=== PATIENT | female | born 1950 | race Caucasian/White ===

== ENCOUNTER 2017-11-14 23:02 | Emergency (ER) | payer OTHER, MEDICARE ==
[~2017-11-14] VITALS: Ht 165.1 cm; Wt 81.4 kg
[~2017-11-14 23:02] MED LIST: AMPH20CA7 PO; ATOR20TA PO; BACL20TA PO; DOCU-180 PO; FURO20TA3 PO; LEVO75TA5 PO; OXYC15TA60 PO; POTA10TA6 PO; POTA99TA24 PO; VENL150C PO
[2017-11-14 23:30] LABS: BASOPHILS # (AUTO) 0.02 x10^3/uL (0-0.1); BASOPHILS % (AUTO) 0 % (0-1); EOSINOPHILS # (AUTO) 0.05 x10^3/uL (0-0.4); EOSINOPHILS % (AUTO) 1 % (1-7); LYMPHOCYTES # (AUTO) 1.95 x10^3/uL (1-3.4); LYMPHOCYTES % (AUTO) 24 % (22-44); MD NO; MEAN CORPUSCULAR HEMOGLOBIN 28.4 pg (27.0-34.8); MEAN CORPUSCULAR HGB CONC 33.2 g/dL (32.4-35.8); MEAN CORPUSCULAR VOLUME 85.4 fL (80-100); MEAN PLATELET VOLUME 7.6 fL (7.4-10.4); MONOCYTES # (AUTO) 0.41 x10^3/uL (0.2-0.8); MONOCYTES % (AUTO) 5 % (2-9); NEUTROPHILS # (AUTO) 5.76 x10^3/uL (1.8-6.8); NEUTROPHILS % (AUTO) 70 % (42-75); PLATELET COUNT 358 x10^3/uL (130-400); RED BLOOD COUNT 4.89 x10^6/uL (3.82-5.3); RED CELL DISTRIBUTION WIDTH 15.1 % (9.6-15.2)
[2017-11-14] MEDS ORDERED: ZIPRASIDONE 20 MG INJ IM ONE (23:30)
[2017-11-14] MEDS ORDERED: VENL150C PO (23:41)
[2017-11-14] MEDS ORDERED: DOCU-131 PO (23:41)
[2017-11-14 23:42] LABS: ANION GAP 7 mmol/L (5-15); CALCIUM 8.9 mg/dL (8.5-10.1); CHLORIDE 108 mmol/L (98-107); CREATININE 0.96 mg/dL (0.55-1.02); SALICYLATE LEVEL 4.4 mg/dL (2.8-20.0)
[2017-11-14 23:45] LABS: ACETAMINOPHEN < 2 mcg/mL (10-30)
[2017-11-15] MEDS ORDERED: ZIPRASIDONE 20 MG INJ IM ONE
[2017-11-15 00:25] LABS: MICROSCOPIC NOT IND
[2017-11-15 00:26] LABS: CULTURE INDICATED? NO
[2017-11-15 00:39] LABS: AMPHETAMINE SCREEN, URINE Positive (Negative); BARBITURATE SCREEN, URINE Negative (Negative); BENZODIAZEPINE SCREEN, URINE Negative (Negative); COCAINE SCREEN, URINE Negative (Negative); METHADONE SCREEN, URINE Negative (Negative); OPIATE SCREEN, URINE Negative (Negative)
[2017-11-15 00:40] LABS: CANNABINOID SCREEN, URINE Positive (Negative)
[2017-11-15] MEDS ORDERED: OXYcodone IR 5MG TABLET PO PRN (06:30)
[2017-11-15] MEDS ORDERED: ONDANSETRON ODT 4 MG PO PRN (06:30)
[2017-11-15] MEDS ORDERED: ZIPRASIDONE 20MG CAPSULE PO PRN (06:30)
[2017-11-15] MEDS ORDERED: ACETAMINOPHEN 325 MG TABLET PO PRN (06:30)
[2017-11-15] MEDS ORDERED: ZIPRASIDONE 20 MG INJ IM PRN (06:30)
[2017-11-15] MEDS ORDERED: DOCUSATE 100 MG CAPSULE ONE (08:26)
[2017-11-15] MEDS ORDERED: FUROSEMIDE 20 MG TABLET ONE (08:26)
[2017-11-15] MEDS ORDERED: BACLOFEN 10 MG TABLET PO SCH (09:00)
[2017-11-15] MEDS ORDERED: LEVOTHYROXINE 75 MCG TABLET PO SCH (09:00)
[2017-11-15] MEDS ORDERED: DOCUSATE 100 MG CAPSULE PO SCH (09:00)
[2017-11-15] MEDS ORDERED: FUROSEMIDE 20 MG TABLET PO SCH (09:00)
[2017-11-15] MEDS ORDERED: POTASSIUM CHLORIDE 10 MEQ TABLET.ER PO SCH (09:00)
[2017-11-15 13:00] VITALS: BP 100/62
[2017-11-15] MEDS ORDERED: ATORVASTATIN 20 MG TABLET PO SCH (21:00)
== END 2017-11-15 16:05 ==
LOC: ED 23:59 → EDIP 11-15 01:38 → UNDOADMOB 11-15 01:38 → UNDODISOB 11-15 16:02
DX: F31.74 Bipolar disorder, in full remission, most recent episode manic (principal); R45.851 Suicidal ideations; E03.9 Hypothyroidism, unspecified; Z79.899 Other long term (current) drug therapy
CPT/HCPCS: 36415; 80048; 80307; 80329; 81003; 82040; 85025; 96372; 99285; J3486; G0480

== ENCOUNTER 2017-12-01 11:08 | Emergency (ER) | payer OTHER, MEDICARE ==
[~2017-12-01] VITALS: Ht 162.6 cm; Wt 85.5 kg
[~2017-12-01 11:08] MED LIST changes: +DOCU-131 PO
[2017-12-01 12:39] LABS: BASOPHILS # (AUTO) 0.02 x10^3/uL (0-0.1); BASOPHILS % (AUTO) 0 % (0-1); EOSINOPHILS # (AUTO) 0.09 x10^3/uL (0-0.4); EOSINOPHILS % (AUTO) 1 % (1-7); LYMPHOCYTES # (AUTO) 1.76 x10^3/uL (1-3.4); LYMPHOCYTES % (AUTO) 26 % (22-44); MD NO; MEAN CORPUSCULAR HEMOGLOBIN 28.6 pg (27.0-34.8); MEAN CORPUSCULAR VOLUME 86.6 fL (80-100); MEAN PLATELET VOLUME 7.4 fL (7.4-10.4); MONOCYTES # (AUTO) 0.39 x10^3/uL (0.2-0.8); MONOCYTES % (AUTO) 6 % (2-9); NEUTROPHILS # (AUTO) 4.61 x10^3/uL (1.8-6.8); NEUTROPHILS % (AUTO) 67 % (42-75); PLATELET COUNT 376 x10^3/uL (130-400); RED BLOOD COUNT 4.34 x10^6/uL (3.82-5.3); RED CELL DISTRIBUTION WIDTH 15.7 % (9.6-15.2)
[2017-12-01 12:51] LABS: ALBUMIN 3.6 g/dL (3.4-5.0); ANION GAP 5 mmol/L (5-15); CALCIUM 8.5 mg/dL (8.5-10.1); CHLORIDE 109 mmol/L (98-107); CREATININE 0.84 mg/dL (0.55-1.02)
[2017-12-01 12:55] LABS: TROPONIN I < 0.015 ng/mL (0.000-0.045)
[2017-12-01 14:34] VITALS: BP 145/90
== END 2017-12-01 14:36 | disposition home or self-care (01) ==
LOC: ED 13:48
DX: M25.572 Pain in left ankle and joints of left foot (principal); R07.89 Other chest pain; E03.9 Hypothyroidism, unspecified
CPT/HCPCS: 36415; 71046; 80048; 82040; 84484; 85025; 93005; 99285

== ENCOUNTER 2017-12-03 13:47 | Emergency (ER) | payer OTHER, MEDICARE ==
[~2017-12-03] VITALS: Ht 162.6 cm; Wt 85.0 kg
[2017-12-03 13:51] VITALS: BP 138/66
== END 2017-12-03 14:34 | disposition left against medical advice (07) ==
LOC: ED 14:00
DX: R60.0 Localized edema (principal); F31.9 Bipolar disorder, unspecified; E03.9 Hypothyroidism, unspecified; F17.210 Nicotine dependence, cigarettes, uncomplicated
CPT/HCPCS: 99281

== ENCOUNTER → 2017-12-26 | Outpatient (CLI) | payer OTHER, MEDICARE ==
[~2017-12-26] MED LIST changes: +DOXY100C2 PO; +DOXY25TA45 PO; +OLAN15TA9 PO
[2017-12-26 16:14] LABS: BASOPHILS # (AUTO) 0.03 x10^3/uL (0-0.1); BASOPHILS % (AUTO) 0 % (0-1); EOSINOPHILS # (AUTO) 0.17 x10^3/uL (0-0.4); EOSINOPHILS % (AUTO) 2 % (1-7); LYMPHOCYTES # (AUTO) 1.67 x10^3/uL (1-3.4); LYMPHOCYTES % (AUTO) 21 % (22-44); MD NO; MEAN CORPUSCULAR HEMOGLOBIN 28.8 pg (27.0-34.8); MEAN CORPUSCULAR HGB CONC 33.4 g/dL (32.4-35.8); MEAN CORPUSCULAR VOLUME 86.1 fL (80-100); MEAN PLATELET VOLUME 8.1 fL (7.4-10.4); MONOCYTES # (AUTO) 0.37 x10^3/uL (0.2-0.8); MONOCYTES % (AUTO) 5 % (2-9); NEUTROPHILS # (AUTO) 5.86 x10^3/uL (1.8-6.8); NEUTROPHILS % (AUTO) 72 % (42-75); PLATELET COUNT 369 x10^3/uL (130-400); RED BLOOD COUNT 4.64 x10^6/uL (3.82-5.3); RED CELL DISTRIBUTION WIDTH 15.2 % (9.6-15.2)
[2017-12-26 16:18] LABS: ALANINE AMINOTRANSFERASE 79 U/L (12-78); ALBUMIN 3.6 g/dL (3.4-5.0); ANION GAP 7 mmol/L (5-15); CALCIUM 8.8 mg/dL (8.5-10.1); CHLORIDE 107 mmol/L (98-107); CREATININE 0.98 mg/dL (0.55-1.02)
[2017-12-26 16:21] LABS: ALKALINE PHOSPHATASE 93 U/L (45-117); BILIRUBIN,TOTAL 0.2 mg/dL (0.2-1.0); TOTAL PROTEIN 6.9 g/dL (6.4-8.2)
[2017-12-26 16:34] LABS: MICROSCOPIC INDICATED
[2017-12-26 16:35] LABS: CULTURE INDICATED? YES
== END | disposition home or self-care (01) ==
LOC: STAR 14:14
PROVIDERS: ATTEND Orthopaedic Surgery
DX: Z01.818 Encounter for other preprocedural examination (principal); M16.11 Unilateral primary osteoarthritis, right hip; I45.81 Long QT syndrome
CPT/HCPCS: 36415; 80053; 81001; 85025; 87081; 87086; 93005

== ENCOUNTER 2017-12-30 06:57 | Inpatient (IN) | payer OTHER, MEDICARE ==
[~2017-12-30] VITALS: Ht 163.8 cm; Wt 90.4 kg
[2017-12-30] MEDS ORDERED: PROPOFOL 10 MG/ML, 20ML ONE (08:46)
[2017-12-30] MEDS ORDERED: MIDAZOLAM 1 MG/ML, 2ML ONE (08:46)
[2017-12-30] MEDS ORDERED: SUFentanil 50 MCG/ML, 1ML ONE (08:46)
[2017-12-30] MEDS ORDERED: WATER-INJECTION,STERILE 10 ML IV ONE (08:47)
[2017-12-30] MEDS ORDERED: CEFAZOLIN 1,000 MG ONE ×2 (08:47)
[2017-12-30] MEDS ORDERED: ROCURONIUM 10 MG/ML,10ML ONE (08:50)
[2017-12-30] MEDS ORDERED: SCOPOLAMINE PATCH, 1.5MG PATCH.TD72 TD ONE (09:00)
[2017-12-30] MEDS ORDERED: GABAPENTIN 300 MG CAPSULE PO ONE (09:00)
[2017-12-30] MEDS ORDERED: OxyconTIN ER 20 MG TAB.ER PO ONE (09:00)
[2017-12-30] MEDS ORDERED: ACETAMINOPHEN 500 MG TABLET PO ONE (09:00)
[2017-12-30] MEDS ORDERED: EPINEPHRINE 1 MG/ML, 1ML ONE (09:08)
[2017-12-30] MEDS ORDERED: KETOROLAC 60 MG/2 ML ONE (09:08)
[2017-12-30] MEDS ORDERED: ROPIvacaine/PF 0.2%, 20 ML ONE (09:08)
[2017-12-30] MEDS ORDERED: SODIUM CHLORIDE 0.9% 100 ML ONE (09:08)
[2017-12-30] MEDS ORDERED: TRANEXAMIC ACID 100 MG/ML, 10ML ONE (09:08)
[2017-12-30] MEDS ORDERED: KETOROLAC 30 MG/1 ML IV SCH (09:30)
[2017-12-30] MEDS ORDERED: ALUMINUM/MAG/SIMETHICONE 30 ML UDC PO PRN (09:30)
[2017-12-30] MEDS ORDERED: PROMETHAZINE 25 MG/ML, 1ML IM PRN (09:30)
[2017-12-30] MEDS ORDERED: ONDANSETRON 2MG/ML, 2ML IV PRN (09:30)
[2017-12-30] MEDS ORDERED: ZOLPIDEM 5MG TABLET PO PRN (09:30)
[2017-12-30] MEDS ORDERED: DIAZEPAM 5 MG TABLET PO PRN (09:30)
[2017-12-30] MEDS ORDERED: SENNA/DOCUSATE TABLET PO PRN (09:30)
[2017-12-30] MEDS ORDERED: PROMETHAZINE 12.5 MG SUPP PR PRN (09:30)
[2017-12-30] MEDS ORDERED: HYDROmorphone 1 MG/ML, 1ML IV PRN (09:30)
[2017-12-30] MEDS ORDERED: ONDANSETRON 4 MG TABLET PO PRN (09:30)
[2017-12-30] MEDS ORDERED: MAGNESIUM HYDROXIDE 8%, 30ML UDC PO PRN (09:30)
[2017-12-30] MEDS ORDERED: DIPHENHYDRAMINE 50 MG CAPSULE PO PRN (09:30)
[2017-12-30] MEDS: ACETAMINOPHEN 500 MG TABLET PO SCH ×3 (09:30→21:34)
[2017-12-30] MEDS ORDERED: BISACODYL 10 MG SUPP PR PRN (09:30)
[2017-12-30] MEDS ORDERED: OXYcodone IR 5MG TABLET PO PRN (09:30)
[2017-12-30] MEDS ORDERED: DEXAMETHASONE 4 MG/ML, 1ML ONE ×2 (10:04)
[2017-12-30] MEDS ORDERED: FENTANYL PF 100 MCG/2ML IV PRN (10:30)
[2017-12-30] MEDS ORDERED: LABETALOL 5MG/ML, 20ML IV PRN (10:30)
[2017-12-30] MEDS ORDERED: MEPERIDINE/PF 25MG/0.5ML IVPush PRN (10:30)
[2017-12-30] MEDS ORDERED: PROMETHAZINE 25 MG/ML, 1ML IV PRN (10:30)
[2017-12-30] MEDS ORDERED: OXYcodone 5 MG/5 ML ORAL.SOL UDC PO PRN (10:30)
[2017-12-30] MEDS ORDERED: morphine SULFATE 10 MG/ML, 1ML IV PRN (10:30)
[2017-12-30] MEDS ORDERED: LORazepam 2 MG/ML, 1ML IVPush PRN (10:30)
[2017-12-30] MEDS ORDERED: hydrALAzine 20 MG/ML, 1ML IV PRN (10:30)
[2017-12-30] MEDS ORDERED: HALOPERIDOL 5 MG/ML ONE (11:59)
[2017-12-30] MEDS ORDERED: TRANEXAMIC ACID 1,000 MG in SODIUM CHLORIDE 0.9% 100 ML IVPB ONE (12:00)
[2017-12-30] MEDS ORDERED: HYDROmorphone 2 MG/ML, 1ML ONE (12:11)
[2017-12-30] MEDS: HYDROmorphone 1 MG/ML, 1ML IV PRN ×2 (12:17→12:24)
[2017-12-30 13:00] VITALS: BP 107/65
[2017-12-30] MEDS: OXYcodone IR 5MG TABLET PO SCH ×5 (13:25→21:35)
[2017-12-30] MEDS: D5%-0.45% NACL 1,000 ML IV SCH ×2 (13:34→20:52)
[2017-12-30] MEDS: TAMSULOSIN 0.4 MG CAP.ER.24H PO SCH (13:34)
[2017-12-30] MEDS ORDERED: PHENYLEPHRINE 10 MG/ML ONE (15:23)
[2017-12-30] MEDS: CEFAZOLIN PMX 2GM/50ML 50 ML IVPB SCH (17:30)
[2017-12-30] MEDS: ASPIRIN 81 MG TABLET EC PO SCH (17:31)
[2017-12-30 19:40] VITALS: BP 99/68
[2017-12-30] MEDS: BACLOFEN 10 MG TABLET PO SCH (20:51)
[2017-12-30] MEDS: DOCUSATE 100 MG CAPSULE PO SCH (20:52)
[2017-12-30] MEDS ORDERED: ATORVASTATIN 20 MG TABLET PO SCH (21:00)
[2017-12-30] MEDS ORDERED: OLANZAPINE 5 MG TABLET PO SCH ×2 (21:00)
[2017-12-30 23:57] VITALS: BP 90/55
[2017-12-31] MEDS: OXYcodone IR 5MG TABLET PO SCH ×3 (01:35→09:15)
[2017-12-31] MEDS: D5%-0.45% NACL 1,000 ML IV SCH ×2 (01:36→08:09)
[2017-12-31] MEDS: CEFAZOLIN PMX 2GM/50ML 50 ML IVPB SCH (01:36)
[2017-12-31 02:16] VITALS: BP 90/50
[2017-12-31] MEDS: ACETAMINOPHEN 500 MG TABLET PO SCH ×2 (04:09→10:04)
[2017-12-31] MEDS: ASPIRIN 81 MG TABLET EC PO SCH (05:51)
[2017-12-31] MEDS ORDERED: DEXAMETHASONE 4 MG/ML, 1ML IVPush SCH (06:00)
[2017-12-31 07:16] VITALS: BP 96/65
[2017-12-31] MEDS: TAMSULOSIN 0.4 MG CAP.ER.24H PO SCH (08:02)
[2017-12-31] MEDS: BACLOFEN 10 MG TABLET PO SCH (08:02)
[2017-12-31] MEDS: DOCUSATE 100 MG CAPSULE PO SCH (08:03)
[2017-12-31] MEDS ORDERED: FUROSEMIDE 20 MG TABLET PO SCH (09:00)
[2017-12-31] MEDS ORDERED: OLANZAPINE 5 MG TABLET PO SCH (09:00)
[2017-12-31] MEDS ORDERED: LEVOTHYROXINE 75 MCG TABLET PO SCH (09:00)
[2017-12-31] MEDS ORDERED: MULTIVITAMINS/MINERALS TABLET PO SCH (09:00)
[2017-12-31] MEDS ORDERED: POTASSIUM CHLORIDE 10 MEQ TABLET.ER PO SCH (09:00)
[2017-12-31] MEDS ORDERED: KETOROLAC 30 MG/1 ML IV SCH (11:30)
[2017-12-31 12:15] VITALS: BP 110/74
== END 2017-12-31 12:56 | disposition home or self-care (01) | DRG 470 ==
LOC: ORIP 06:57 → 4NOR 13:05 → DCLOUNGE 12-31 12:49
PROVIDERS: ADMIT Orthopaedic Surgery; ATTEND Orthopaedic Surgery
PROC: 0SR906A Replacement of Right Hip Joint with Oxidized Zirconium on Polyethylene Synthetic Substitute, Uncemented, Open Approach (ICD-10-PCS; principal; 2017-12-30 09:45)
DX: M16.11 Unilateral primary osteoarthritis, right hip (principal); E03.9 Hypothyroidism, unspecified; E78.5 Hyperlipidemia, unspecified; F17.210 Nicotine dependence, cigarettes, uncomplicated; I10 Essential (primary) hypertension; G89.29 Other chronic pain; F32.9 Major depressive disorder, single episode, unspecified; Z88.8 Allergy status to other drugs, medicaments and biological substances
CPT/HCPCS: 36415; 72170; 85014; 85018; 86850; 86900; C1713; J0171; J0690; J1100; J1170; J1885; J2250; J2704; J2795; C1776; J2370

== ENCOUNTER 2018-04-28 12:03 | Emergency (ER) | payer MEDICARE, OTHER ==
[~2018-04-28] VITALS: Ht 162.6 cm; Wt 89.3 kg
[2018-04-28 12:09] VITALS: BP 112/75
== END 2018-04-28 13:47 | disposition left against medical advice (07) ==
LOC: ED 13:41
DX: S63.521A Sprain of radiocarpal joint of right wrist, initial encounter (principal); S40.021A Contusion of right upper arm, initial encounter; F31.9 Bipolar disorder, unspecified; E03.9 Hypothyroidism, unspecified; Z88.5 Allergy status to narcotic agent; W01.0XXA Fall on same level from slipping, tripping and stumbling without subsequent striking against object, initial encounter; Y93.89 Activity, other specified; Y92.098 Other place in other non-institutional residence as the place of occurrence of the external cause; Y99.8 Other external cause status
CPT/HCPCS: 99284

== ENCOUNTER 2018-10-22 17:47 | Inpatient (IN) | payer OTHER, MEDICARE ==
[~2018-10-22] VITALS: Ht 177.8 cm; Wt 101.5 kg
[~2018-10-22 17:47] MED LIST changes: +ETOMIDATE 20 MG/10 ML ONE; +LEVO100T PO; +ROCURONIUM 10MG/ML,5ML ONE; +SUCCINYLCHOLINE 20 MG/ML, 10ML ONE
[2018-10-22] MEDS ORDERED: SODIUM CHLORIDE 0.9% 1,000 ML IV ONE (17:55)
[2018-10-22] MEDS ORDERED: SODIUM CHLORIDE 0.9% 1,000ML IVBOLUS ONE ×2 (18:00→20:00)
[2018-10-22] MEDS ORDERED: SODIUM CHLORIDE FLUSH 10ML SYR IVF ONE (18:00)
--- NOTE | 2018-10-22 18:06 | NUR ---
BIB [facility] AFTER BEING FOUND DOWN AT 1715. PER FOUND HER FOAMING AT THE MOUTH. UPON [facility] ARRIVAL PT NOTED TO HAVE CHEWED PILLS IN HER MOUTH W/ ROPINIROLE AND OLANZAPINE CHEWED AND THROWN ON THE GROUND. VS LINING IRONER BS 127, HR 6'S-70'S, BP 144/100. ETCO2 WENT FROM 23-30'S. GCS 7. PT RESTING ON GURNEY. EKG COMPLETED. MONITORS APPLIED. PT NOTED TO HAVE HX SI/HI.
[2018-10-22 18:19] LABS: BASOPHILS # (AUTO) 0.03 x10^3/uL (0-0.1); BASOPHILS % (AUTO) 0 % (0-1); EOSINOPHILS # (AUTO) 0.25 x10^3/uL (0-0.4); EOSINOPHILS % (AUTO) 3 % (1-7); LYMPHOCYTES # (AUTO) 1.61 x10^3/uL (1-3.4); LYMPHOCYTES % (AUTO) 21 % (22-44); MD NO; MEAN CORPUSCULAR HEMOGLOBIN 28.9 pg (27.0-34.8); MEAN CORPUSCULAR HGB CONC 33.4 g/dL (32.4-35.8); MEAN CORPUSCULAR VOLUME 86.6 fL (80-100); MEAN PLATELET VOLUME 7.4 fL (7.4-10.4); MONOCYTES # (AUTO) 0.51 x10^3/uL (0.2-0.8); MONOCYTES % (AUTO) 7 % (2-9); NEUTROPHILS # (AUTO) 5.42 x10^3/uL (1.8-6.8); NEUTROPHILS % (AUTO) 69 % (42-75); PLATELET COUNT 372 x10^3/uL (130-400); RED BLOOD COUNT 4.19 x10^6/uL (3.82-5.3); RED CELL DISTRIBUTION WIDTH 15.4 % (9.6-15.2)
[2018-10-22 18:28] LABS: ALBUMIN 3.3 g/dL (3.4-5.0); ANION GAP 10 mmol/L (5-15); CALCIUM 9.3 mg/dL (8.5-10.1); CHLORIDE 111 mmol/L (98-107); SALICYLATE LEVEL 4.5 mg/dL (2.8-20.0)
[2018-10-22] MEDS ORDERED: AMPH5TAB PO (18:36)
[2018-10-22] MEDS ORDERED: ROPI0.254 PO (18:36)
[2018-10-22] MEDS ORDERED: OLAN2.5T10 PO (18:36)
[2018-10-22 18:40] LABS: ALANINE AMINOTRANSFERASE 56 U/L (12-78); ALKALINE PHOSPHATASE 115 U/L (45-117); BILIRUBIN,TOTAL 0.5 mg/dL (0.2-1.0); CREATININE 1.01 mg/dL (0.55-1.02); TOTAL PROTEIN 6.6 g/dL (6.4-8.2)
[2018-10-22 18:42] LABS: ACETAMINOPHEN < 2 mcg/mL (10-30)
--- NOTE | 2018-10-22 18:42 | NUR ---
PER FAMILY PT TAKES OXYCODONE AND RAN OUT 3 DAYS AGO. WAS SEEN NORMAL AT 0530 THIS AM.
--- NOTE | 2018-10-22 18:45 | NUR ---
REPORT REC, PT MOANING AND PULLING AT LINES, SOFT RESTRAINTS PLACED AT THIS TIME. PT PALER, RESP RATE EVEN AND REGULAR AT THIS TIME, WARMING BLANKET ON PT, PTS WAS APPRENTLY HERE HOWEVER HE TOOK NONE OF HER BELONIGNGS, INCLUDING HER DENTURES WHICH ARE PLACED IN A BAG AT THE HEAD OF THE BED BY OPFFGOING NURSE. MINI CATH SPECIMEN OBTAINED AT THIS TIME. PT NSR MONITOR WITHOUT ECTOPY, RATE 93, SPO2 98% CO2 33.
[2018-10-22] MEDS ORDERED: NALOXONE 0.4 MG/ML, 1ML ONE (18:51)
--- NOTE | 2018-10-22 18:55 | NUR ---
ERP NOTIFIED OF PT BP AND PT BECOMING MORE DIFFICULT TO AROUSE. AWAITING NEW ORDERS.
[2018-10-22] MEDS ORDERED: FLUMAZENIL 0.1 MG/1 ML, 5ML IVPush ONE (19:00)
[2018-10-22] MEDS: NALOXONE 0.4 MG/ML, 1ML IVPush PRN (19:00)
[2018-10-22] MEDS ORDERED: FLUMAZENIL 0.1 MG/1 ML, 5ML ONE (19:01)
--- NOTE | 2018-10-22 19:05 | NUR ---
PT MEDICATED W/ NARCAN W/O CHANGE. PT THEN MEDICATED W/ FLUAZENIL AND PT BECAME IMMEDIATELY BECAME MORE RESPONSIVE. Addendum: 10/22/18 at 1914 by BAVILA FLUMAZENIL
[2018-10-22 19:07] LABS: ACETONE, SERUM Large (80mg/dL) mg/dL (Negative)
[2018-10-22 19:59] LABS: AMPHETAMINE SCREEN, URINE Positive (Negative); BARBITURATE SCREEN, URINE Negative (Negative); BENZODIAZEPINE SCREEN, URINE Negative (Negative); CANNABINOID SCREEN, URINE Negative (Negative); COCAINE SCREEN, URINE Negative (Negative); METHADONE SCREEN, URINE Negative (Negative); OPIATE SCREEN, URINE Negative (Negative)
--- NOTE | 2018-10-22 19:59 | NUR ---
B/P LOW, MD AWARE AND ANOTHER LITRE BOLUS ORDERED.
--- NOTE | 2018-10-22 20:11 | NUR ---
BOLUS CONTINHUES, PT RESPONSIVE TO PAIN, NON VERBAL, MOVES ALL EXTREMITIES. BOLUS CONTINUES, PULSES PRESENT THROUGHOUT, STRONG AND REGULAR
[2018-10-22 20:37] LABS: MICROSCOPIC INDICATED
[2018-10-22 20:55] LABS: CULTURE INDICATED? NO
--- NOTE | 2018-10-22 20:55 | NUR ---
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
--- NOTE | 2018-10-22 20:59 | NUR ---
AROUSABLE TO PAINFUL STIMULI, NON VERBAL, LOPEZ, PULSES PRESENT AND INTACT, REPEAT RECTAL TEMP AT THIS TIME, 97, WARNMING MEASUSRES CONTINUE.
[2018-10-22] MEDS ORDERED: ONDANSETRON ODT 4 MG PO PRN (21:00)
[2018-10-22] MEDS ORDERED: DEXTROSE 5% IV ONE (21:00)
[2018-10-22] MEDS ORDERED: ENALAPRILAT 1.25 MG/ML, 2ML IVPush PRN (21:00)
[2018-10-22] MEDS ORDERED: ACETYLCYSTEINE IV ONE (21:00)
[2018-10-22] MEDS: SODIUM CHLORIDE 0.9% 1,000 ML IV SCH (21:06)
[2018-10-22] MEDS ORDERED: HEPARIN 5,000 UNITS/ML, 1ML ONE (21:12)
[2018-10-22] MEDS ORDERED: ONDANSETRON 2MG/ML, 2ML IVPush PRN (21:30)
--- NOTE | 2018-10-22 21:32 | NUR ---
TEMP PROBE AGUIAR PLACED PER MD ORDERED, PT ALTERED AND UNABLE TO INDICATE NEED TO URINATE AND HAS BEEN HYPOTHERMIC AND NEED MRE ACCURATE TEMPERATURE. CLOSE MONITORING OF THIS PT. OPENS EYES PAINFUL STIMULI, RESP RATE EVEN AND 8-10. FLUIDS PER ORDER. PT WITH 1300 CLEAR YELLOW URINE OUT.
[2018-10-22 21:38] LABS: INTERNATIONAL NORMALIZED RATIO 1.07 (0.93-1.1); PROTHROMBIN TIME 11.3 Seconds (9.6-11.5)
--- NOTE | 2018-10-22 21:48 | NUR ---
RESTRAINTS REMOVED AT THIS TIME. CLOSE MONITORING.
--- NOTE | 2018-10-22 22:00 | NUR ---
JOSELOITNUE WITH [place] GONZALEZ. PT WITH GAG REFLEX AT THIS TIME, ORDERING BLOOD SUGAR BOTH MON ITORS UNABLE TO TAKE TEST
[2018-10-22] MEDS: HEPARIN 5,000 UNITS/ML, 1ML SQ SCH (22:17)
--- NOTE | 2018-10-22 22:25 | NUR ---
ER AWARE THAT PT CONITUES TO BY HYPOTENSIVE IF NO STIMULATION, PLAN TO POLACE CENTRAL LINE AND PRESSORS.
--- NOTE | 2018-10-22 22:29 | NUR ---
PT AWAKE AND MOANING AT THIS TIME, NON VERBAL WITH STAFF, WILL NOT LOOK AT STAFF..
[2018-10-22] MEDS ORDERED: NOREPINEPHRINE 4 MG in SODIUM CHLORIDE 0.9% 246 ML IV PRN (23:00)
--- NOTE | 2018-10-22 23:24 | NUR ---
20 ETOMIDATE, 100 SUCC GIVEN, PT INTUBATED BY DR TEAGUE WITH 8.0 ET TUBE AT 23CM AT LIP, GOOD COLOR CHANGE CO2 DETECTOR, EQUAL RISE AND FALL CHEST, BS AUSCULTATED BILAT.
[2018-10-22] MEDS ORDERED: SUCCINYLCHOLINE 20 MG/ML, 10ML IVPush ONE (23:30)
[2018-10-22] MEDS ORDERED: FENTANYL PF 2,500 MCG in SODIUM CHLORIDE 0.9% 200 ML IV PRN (23:30)
[2018-10-22] MEDS ORDERED: ETOMIDATE 20 MG/10 ML IVPush ONE (23:30)
--- NOTE | 2018-10-22 23:35 | NUR ---
16FRENCH NG TUBE PLACED, PLACEMENT CONFIRMED BY ASPIRATION AND AUSCULTATION. SECURED AND TO SUCTION.
--- NOTE | 2018-10-22 23:38 | NUR ---
RT SUCTION PT, APPEARANCE OF PILL FRAGMENTS NOTED.
--- NOTE | 2018-10-22 23:46 | NUR ---
RADIOLOGY TO BEDSIDE
--- NOTE | 2018-10-22 23:49 | NUR ---
CLEARS CENTAL LINE FOR USE, LEVOPHED NOW INFUSING THROUGH THIS LINE
[2018-10-23] MEDS ORDERED: SENNA/DOCUSATE TABLET NG PRN
[2018-10-23] MEDS ORDERED: AMPICILLIN/SULBACTAM 3 GM in SODIUM CHLORIDE 0.9% 100 ML IV ONE
[2018-10-23] MEDS ORDERED: LIDOCAINE-MPF 1%, 2ML ENDO PRN
[2018-10-23] MEDS ORDERED: LACTULOSE 20 GM/30 ML UDC NG PRN
[2018-10-23] MEDS ORDERED: AMPICILLIN/SULBACTAM 3 GM IM ONE
[2018-10-23] MEDS ORDERED: BISACODYL 10 MG SUPP PR PRN
[2018-10-23] MEDS ORDERED: FENTANYL PF 100 MCG/2ML IVPush PRN
[2018-10-23] MEDS ORDERED: DEXTROSE 50%, 50ML SYRINGE IVPush PRN
[2018-10-23] MEDS ORDERED: PHARMACY MAY ADJ FOR RENAL FX MC SCH
[2018-10-23] MEDS ORDERED: DEXTROSE 4 GM TAB.CHEW PO PRN
[2018-10-23] MEDS ORDERED: GLUCAGON 1 MG IM PRN
[2018-10-23] MEDS ORDERED: SENNOSIDES 8.8 MG/5 ML ORAL SOL NG PRN
--- NOTE | 2018-10-23 | NUR ---
unasyn infusing at this time as per order, blood cultures have been drawn sheila two, mar indicates that this dose was not given when in fact it was.
[2018-10-23 00:02] LABS: AMPHETAMINE SCREEN, URINE Positive (Negative); BARBITURATE SCREEN, URINE Negative (Negative); BENZODIAZEPINE SCREEN, URINE Negative (Negative); CANNABINOID SCREEN, URINE Negative (Negative); COCAINE SCREEN, URINE Negative (Negative); METHADONE SCREEN, URINE Negative (Negative); OPIATE SCREEN, URINE Negative (Negative)
[2018-10-23] MEDS ORDERED: PROPOFOL 100 ML IV ONE ×2 (00:19→05:41)
--- NOTE | 2018-10-23 00:19 | NUR ---
ABX STARTED AFTER BLOOD CULTURES DRAWN TIMES 2. PT SEDATED AT THIS TIME,
[2018-10-23] MEDS: PROPOFOL 100 ML IV PRN ×3 (00:21→22:21)
[2018-10-23 00:47] LABS: TROPONIN I < 0.015 ng/mL (0.000-0.045)
--- NOTE | 2018-10-23 01:05 | NUR ---
PT ADEQUATELY SEDATED AT THIS TIME, SR MONITOR WITHOUT ECTOPY, WARMING MEASURES CONTINUE.
--- NOTE | 2018-10-23 01:30 | NUR ---
some movement, increase propofol. cvp
[2018-10-23] MEDS ORDERED: ALBUTEROL/IPRATROPIUM 2.5MG/0.5MG, 3 ML ONE (01:52)
--- NOTE | 2018-10-23 01:53 | NUR ---
PULM AT BEDSIDE, PROPOFOL INCREASED PT MOVING.
[2018-10-23] MEDS: ALBUTEROL/IPRATROPIUM 2.5MG/0.5MG, 3 ML INLINE SCH ×5 (02:00→18:45)
--- NOTE | 2018-10-23 02:40 | NUR ---
CVP 14/9 (11), SEDATED AT THIS TIME, CONTINUE TO MONITOR.
--- NOTE | 2018-10-23 03:20 | NUR ---
titrating gtts for effectiveness, temp increasing.
[2018-10-23] MEDS: SODIUM CHLORIDE 0.9% 1,000 ML IV SCH ×3 (03:24→18:30)
--- NOTE | 2018-10-23 03:50 | NUR ---
ADEQUATE SEDATION AT THIS TIME. GOOD URINE OUTPUT
--- NOTE | 2018-10-23 03:51 | NUR ---
REMAINS IN NSR WITHOUT ECTOPY. SPO2 100%, CVP 15, ETCO2 27
--- NOTE | 2018-10-23 04:23 | NUR ---
SEDATED WITH GOOD B/P, REMAINS NSR MONITOR WITHOUT ECTOPY.
[2018-10-23] MEDS ORDERED: HEPARIN 5,000 UNITS/ML, 1ML ONE (04:25)
[2018-10-23] MEDS ORDERED: PANTOPRAZOLE 40 MG IV ONE (04:25)
--- NOTE | 2018-10-23 04:44 | NUR ---
SEDATED, REMAINS IN NSR MONITOR WITHOUT ECTOPY. REPOSITIONED AGAIN.
--- NOTE | 2018-10-23 05:07 | NUR ---
REMAINS SEDATED, NSR MONITOR WITHOUT ECTOPY, ETCO 25, CVP 14
[2018-10-23] MEDS: HEPARIN 5,000 UNITS/ML, 1ML SQ SCH ×3 (05:14→19:42)
--- NOTE | 2018-10-23 05:28 | NUR ---
LAB TO BEDSIDE FOR DRAW, PT REMAINS SEDATED, NSR MONITOR WITHOUT ECTOPY.
[2018-10-23 05:46] LABS: BASOPHILS # (AUTO) 0.01 x10^3/uL (0-0.1); BASOPHILS % (AUTO) 0 % (0-1); EOSINOPHILS # (AUTO) 0.16 x10^3/uL (0-0.4); EOSINOPHILS % (AUTO) 2 % (1-7); LYMPHOCYTES # (AUTO) 1.05 x10^3/uL (1-3.4); LYMPHOCYTES % (AUTO) 16 % (22-44); MD NO; MEAN CORPUSCULAR HEMOGLOBIN 29.4 pg (27.0-34.8); MEAN CORPUSCULAR HGB CONC 33.8 g/dL (32.4-35.8); MEAN CORPUSCULAR VOLUME 86.9 fL (80-100); MEAN PLATELET VOLUME 7.6 fL (7.4-10.4); MONOCYTES # (AUTO) 0.41 x10^3/uL (0.2-0.8); MONOCYTES % (AUTO) 6 % (2-9); NEUTROPHILS # (AUTO) 5.14 x10^3/uL (1.8-6.8); NEUTROPHILS % (AUTO) 76 % (42-75); PLATELET COUNT 350 x10^3/uL (130-400); RED BLOOD COUNT 3.83 x10^6/uL (3.82-5.3); RED CELL DISTRIBUTION WIDTH 15.1 % (9.6-15.2)
[2018-10-23 05:57] LABS: CHLORIDE 121 mmol/L (98-107)
[2018-10-23] MEDS ORDERED: AMPICILLIN/SULBACTAM 3 GM IV ONE (06:00)
--- NOTE | 2018-10-23 06:04 | NUR ---
NO CHANGES, REMAINS SEDATED, NSR MONITOR WITHOUT ECTOPY.
[2018-10-23 06:12] LABS: ALANINE AMINOTRANSFERASE 48 U/L (12-78); ALBUMIN 2.5 g/dL (3.4-5.0); ALKALINE PHOSPHATASE 88 U/L (45-117); ANION GAP 12 mmol/L (5-15); BILIRUBIN,TOTAL 0.6 mg/dL (0.2-1.0); CALCIUM 7.6 mg/dL (8.5-10.1); CREATINE KINASE, TOTAL 658 U/L (26-192); CREATININE 0.63 mg/dL (0.55-1.02); TOTAL PROTEIN 5.6 g/dL (6.4-8.2); TROPONIN I < 0.015 ng/mL (0.000-0.045)
--- NOTE | 2018-10-23 06:30 | NUR ---
NEW BOTTLE PROPOFOL UP.
[2018-10-23] MEDS: INSULIN LISPRO 100 UNITS/ML, PEN SQ-INSULIN SCH ×4 (06:37→19:44)
[2018-10-23] MEDS: NALOXONE 0.4 MG/ML, 1ML IVPush PRN ×2 (08:11→10:24)
[2018-10-23] MEDS: KETOCONAZOLE CRM 2%, 15GM TP SCH (09:00)
[2018-10-23] MEDS: PANTOPRAZOLE 40 MG IV IVPush SCH (09:04)
[2018-10-23] MEDS: NOREPINEPHRINE 4 MG in SODIUM CHLORIDE 0.9% 246 ML IV PRN ×2 (09:06→18:31)
[2018-10-23] MEDS: SODIUM CHLORIDE FLUSH 10ML SYR IVF SCH ×2 (09:08→19:42)
[2018-10-23] MEDS: AMPICILLIN/SULBACTAM 3 GM in SODIUM CHLORIDE 0.9% 100 ML IV SCH ×4 (13:51→23:14)
[2018-10-23 21:10] VITALS: BP 124/67
[2018-10-24 01:45] VITALS: BP 110/56
[2018-10-24] MEDS: SODIUM CHLORIDE 0.9% 1,000 ML IV SCH ×3 (02:14→17:38)
[2018-10-24] MEDS: INSULIN LISPRO 100 UNITS/ML, PEN SQ-INSULIN SCH ×2 (02:25→07:27)
[2018-10-24] MEDS: ALBUTEROL/IPRATROPIUM 2.5MG/0.5MG, 3 ML INLINE SCH ×7 (02:40→23:00)
[2018-10-24] MEDS: NOREPINEPHRINE 4 MG in SODIUM CHLORIDE 0.9% 246 ML IV PRN (03:06)
[2018-10-24 03:47] LABS: BASOPHILS # (AUTO) 0.02 x10^3/uL (0-0.1); BASOPHILS % (AUTO) 0 % (0-1); EOSINOPHILS # (AUTO) 0.13 x10^3/uL (0-0.4); EOSINOPHILS % (AUTO) 2 % (1-7); LYMPHOCYTES # (AUTO) 1.54 x10^3/uL (1-3.4); LYMPHOCYTES % (AUTO) 23 % (22-44); MD NO; MEAN CORPUSCULAR HEMOGLOBIN 29.2 pg (27.0-34.8); MEAN CORPUSCULAR HGB CONC 33.5 g/dL (32.4-35.8); MEAN CORPUSCULAR VOLUME 87.3 fL (80-100); MEAN PLATELET VOLUME 7.3 fL (7.4-10.4); MONOCYTES # (AUTO) 0.56 x10^3/uL (0.2-0.8); MONOCYTES % (AUTO) 8 % (2-9); NEUTROPHILS # (AUTO) 4.58 x10^3/uL (1.8-6.8); NEUTROPHILS % (AUTO) 67 % (42-75); PLATELET COUNT 354 x10^3/uL (130-400); RED BLOOD COUNT 3.48 x10^6/uL (3.82-5.3); RED CELL DISTRIBUTION WIDTH 15.8 % (9.6-15.2)
[2018-10-24 03:58] LABS: ALANINE AMINOTRANSFERASE 46 U/L (12-78); ALBUMIN 2.4 g/dL (3.4-5.0); ANION GAP 10 mmol/L (5-15); CALCIUM 7.9 mg/dL (8.5-10.1); CHLORIDE 121 mmol/L (98-107); CREATININE 0.73 mg/dL (0.55-1.02)
[2018-10-24 04:01] LABS: ALKALINE PHOSPHATASE 80 U/L (45-117); BILIRUBIN,TOTAL 0.4 mg/dL (0.2-1.0); CREATINE KINASE, TOTAL 371 U/L (26-192); TOTAL PROTEIN 5.2 g/dL (6.4-8.2)
[2018-10-24] MEDS: PROPOFOL 100 ML IV PRN ×3 (04:21→21:10)
[2018-10-24] MEDS: HEPARIN 5,000 UNITS/ML, 1ML SQ SCH ×3 (05:16→20:58)
[2018-10-24] MEDS: AMPICILLIN/SULBACTAM 3 GM in SODIUM CHLORIDE 0.9% 100 ML IV SCH ×3 (05:20→18:20)
[2018-10-24] MEDS: PANTOPRAZOLE 40 MG IV IVPush SCH (07:26)
[2018-10-24] MEDS: SODIUM CHLORIDE FLUSH 10ML SYR IVF SCH ×2 (07:26→20:58)
[2018-10-24] MEDS ORDERED: SODIUM BICARBONATE 1 MEQ/ML, 50ML VIAL ONE (08:27)
[2018-10-24] MEDS ORDERED: SODIUM CHLORIDE 0.9% 1,000ML IV ONE (08:30)
[2018-10-24] MEDS ORDERED: SODIUM BICARBONATE 1 MEQ/ML, 50ML VIAL IV ONE (08:30)
[2018-10-24] MEDS: KETOCONAZOLE CRM 2%, 15GM TP SCH (09:00)
[2018-10-24 10:49] LABS: FIO2 30 %
[2018-10-25] MEDS: SODIUM CHLORIDE 0.9% 1,000 ML IV SCH ×2 (00:24→05:40)
[2018-10-25] MEDS: AMPICILLIN/SULBACTAM 3 GM in SODIUM CHLORIDE 0.9% 100 ML IV SCH ×4 (00:25→18:42)
[2018-10-25] MEDS: ALBUTEROL/IPRATROPIUM 2.5MG/0.5MG, 3 ML INLINE SCH ×3 (02:50→12:00)
[2018-10-25 04:26] LABS: BASOPHILS # (AUTO) 0.03 x10^3/uL (0-0.1); BASOPHILS % (AUTO) 1 % (0-1); EOSINOPHILS % (AUTO) 3 % (1-7); LYMPHOCYTES # (AUTO) 1.49 x10^3/uL (1-3.4); LYMPHOCYTES % (AUTO) 25 % (22-44); MD NO; MEAN CORPUSCULAR HEMOGLOBIN 29.1 pg (27.0-34.8); MEAN CORPUSCULAR HGB CONC 33.2 g/dL (32.4-35.8); MEAN CORPUSCULAR VOLUME 87.6 fL (80-100); MEAN PLATELET VOLUME 7.3 fL (7.4-10.4); MONOCYTES # (AUTO) 0.41 x10^3/uL (0.2-0.8); MONOCYTES % (AUTO) 7 % (2-9); NEUTROPHILS # (AUTO) 3.76 x10^3/uL (1.8-6.8); NEUTROPHILS % (AUTO) 64 % (42-75); PLATELET COUNT 318 x10^3/uL (130-400); RED BLOOD COUNT 3.31 x10^6/uL (3.82-5.3); RED CELL DISTRIBUTION WIDTH 15.8 % (9.6-15.2)
[2018-10-25 05:36] LABS: CHLORIDE 123 mmol/L (98-107)
[2018-10-25] MEDS: HEPARIN 5,000 UNITS/ML, 1ML SQ SCH ×3 (05:40→20:35)
[2018-10-25 05:42] LABS: ANION GAP 10 mmol/L (5-15); CALCIUM 7.6 mg/dL (8.5-10.1); CREATININE 0.61 mg/dL (0.55-1.02)
[2018-10-25] MEDS: D5%-0.45NACL+KCL 20MEQ 1,000 ML IV SCH ×2 (06:57→16:17)
[2018-10-25] MEDS: PANTOPRAZOLE 40 MG IV IVPush SCH (08:37)
[2018-10-25] MEDS: SODIUM CHLORIDE FLUSH 10ML SYR IVF SCH ×2 (08:38→20:35)
[2018-10-25] MEDS: KETOCONAZOLE CRM 2%, 15GM TP SCH (08:38)
[2018-10-25] MEDS ORDERED: ALBUTEROL/IPRATROPIUM 2.5MG/0.5MG, 3 ML NPPB PRN (12:30)
[2018-10-25 15:20] VITALS: BP 128/84
[2018-10-25 19:35] VITALS: BP 130/84
[2018-10-25] MEDS: ATORVASTATIN 20 MG TABLET PO SCH (20:34)
[2018-10-25] MEDS ORDERED: SODIUM CHLORIDE 0.45% 1,000 ML IV SCH (20:44)
[2018-10-26] MEDS: AMPICILLIN/SULBACTAM 3 GM in SODIUM CHLORIDE 0.9% 100 ML IV SCH ×2 (00:11→05:23)
[2018-10-26 01:17] VITALS: BP 119/74
[2018-10-26] MEDS: LEVOTHYROXINE 100 MCG TABLET PO SCH (05:22)
[2018-10-26] MEDS: HEPARIN 5,000 UNITS/ML, 1ML SQ SCH ×3 (05:22→20:05)
[2018-10-26 06:26] LABS: ANION GAP 4 mmol/L (5-15); CALCIUM 7.7 mg/dL (8.5-10.1); CHLORIDE 116 mmol/L (98-107); CREATININE 0.59 mg/dL (0.55-1.02)
[2018-10-26 07:28] VITALS: BP 109/70
[2018-10-26] MEDS ORDERED: POTASSIUM CHLORIDE 10 MEQ TABLET.ER PO SCH (09:00)
[2018-10-26] MEDS: SODIUM CHLORIDE FLUSH 10ML SYR IVF SCH ×2 (09:00→20:04)
[2018-10-26] MEDS: KETOCONAZOLE CRM 2%, 15GM TP SCH ×2 (09:00→09:55)
[2018-10-26] MEDS: FUROSEMIDE 20 MG TABLET PO SCH (09:55)
[2018-10-26] MEDS: AMOXICILLIN/CLAV 875-125MG TABLET PO SCH ×2 (09:55→20:04)
[2018-10-26] MEDS: POTASSIUM CHLORIDE 20 MEQ TAB.ER.PRT PO SCH ×2 (09:55→20:04)
[2018-10-26 13:08] LABS: OCCULT BLOOD NEGATIVE (NEGATIVE)
[2018-10-26 13:33] VITALS: BP 131/79
[2018-10-26 18:46] VITALS: BP 132/82
[2018-10-26] MEDS: ATORVASTATIN 20 MG TABLET PO SCH (20:04)
[2018-10-27 02:00] VITALS: BP 155/83
[2018-10-27 03:41] LABS: CLOSTRIDIUM DIFFICILE TOXIN POSITIVE (Negative)
[2018-10-27 03:43] LABS: CLOSTRIDIUM DIFFICILE ANTIGEN POSITIVE
[2018-10-27] MEDS: HEPARIN 5,000 UNITS/ML, 1ML SQ SCH ×2 (04:37→12:25)
[2018-10-27] MEDS: LEVOTHYROXINE 100 MCG TABLET PO SCH (04:38)
[2018-10-27] MEDS: VANCOMYCIN 50 MG/ML ORAL SUSP PO SCH ×2 (06:09→12:30)
[2018-10-27 07:49] VITALS: BP 123/74
[2018-10-27] MEDS: KETOCONAZOLE CRM 2%, 15GM TP SCH (09:00)
[2018-10-27] MEDS: FUROSEMIDE 20 MG TABLET PO SCH (10:25)
[2018-10-27] MEDS: POTASSIUM CHLORIDE 20 MEQ TAB.ER.PRT PO SCH (10:25)
[2018-10-27] MEDS: SODIUM CHLORIDE FLUSH 10ML SYR IVF SCH (10:26)
[2018-10-27] MEDS ORDERED: VANC1VIA3 PO (12:41)
== END 2018-10-27 13:18 | disposition home or self-care (01) | DRG 917 ==
LOC: ED 20:13 → EDIP 20:44 → CCU 10-23 07:06 → 4EST 10-25 14:50
PROVIDERS: ADMIT Family Medicine; ATTEND Family Medicine
PROC: 5A1945Z Respiratory Ventilation, 24-96 Consecutive Hours (ICD-10-PCS; principal; 2018-10-22)
PROC: 0BH17EZ Insertion of Endotracheal Airway into Trachea, Via Natural or Artificial Opening (ICD-10-PCS; 2018-10-22)
PROC: 02HV33Z Insertion of Infusion Device into Superior Vena Cava, Percutaneous Approach (ICD-10-PCS; 2018-10-22)
PROC: 0T9B70Z Drainage of Bladder with Drainage Device, Via Natural or Artificial Opening (ICD-10-PCS; 2018-10-22)
PROC: 0D9670Z Drainage of Stomach with Drainage Device, Via Natural or Artificial Opening (ICD-10-PCS; 2018-10-22)
DX: T43.592A Poisoning by other antipsychotics and neuroleptics, intentional self-harm, initial encounter (principal); J96.01 Acute respiratory failure with hypoxia; E43 Unspecified severe protein-calorie malnutrition; G92 Toxic encephalopathy; R40.20 Unspecified coma; J69.0 Pneumonitis due to inhalation of food and vomit; J96.02 Acute respiratory failure with hypercapnia; A04.72 Enterocolitis due to Clostridium difficile, not specified as recurrent; M62.82 Rhabdomyolysis; R57.9 Shock, unspecified; E03.9 Hypothyroidism, unspecified; M19.90 Unspecified osteoarthritis, unspecified site; T42.8X2A Poisoning by antiparkinsonism drugs and other central muscle-tone depressants, intentional self-harm, initial encounter; F31.9 Bipolar disorder, unspecified; E66.9 Obesity, unspecified; E78.5 Hyperlipidemia, unspecified; F17.210 Nicotine dependence, cigarettes, uncomplicated; G25.81 Restless legs syndrome; I10 Essential (primary) hypertension; I45.81 Long QT syndrome; K59.00 Constipation, unspecified; Z96.641 Presence of right artificial hip joint; Z68.32 Body mass index [BMI] 32.0-32.9, adult; Y92.038 Other place in apartment as the place of occurrence of the external cause; Z91.5 Personal history of self-harm; Z88.5 Allergy status to narcotic agent
CPT/HCPCS: 31500; 36415; 36600; 84145; 99291; J3370; J7620; 70450; 71045; 80048; 80053; 80307; 80329; 80337; 81001; 82010; 82272; 82533; 82550; 82693; 82803; 82947; 82962; 83605; 83735; 83930; 84443; 84450; 84460; 84478; 84484; 84600; 85025; 85520; 85610; 85730; 87040; 87070; 87077; 87081; 87147; 87186; 87205; 87324; 93005; 93306; 94002; 94003; 94640; 96361; 96365; 96367; 96375; G0378; J0132; J0295; J1644; J2310; J2704; J3010; J7060; C9113; G0480; G0481; J0330; J3480; J7030; J7050